=== PATIENT | female | born 1960 | race Caucasian/White ===

== ENCOUNTER → 2023-10-13 15:17 | Outpatient (CLI) | payer OTHER, SELFPAY ==
--- NOTE | 2023-10-13 15:19 | DI.CT.S_ITS ---
PROCEDURE: CT CHEST WO CON INDICATIONS: Hypoxemia TECHNIQUE: Noncontrast 5 mm thick sections acquired from the pulmonary apices to the posterior costophrenic angles. 1 mm lung window, 5 mm thick coronal and sagittal and 7 mm axial MIP reformats were then acquired. For radiation dose reduction, the following was used: automated exposure control, adjustment of mA and/or kV according to patient size. COMPARISON: None. FINDINGS: Image quality: Diagnostic. Lower Neck: No enlarged lymph nodes. Thyroid: No thyroid nodules which require sonographic follow up, per consensus guidelines. Axillae: No enlarged lymph nodes. Chest Wall: Unremarkable. Bones: Unremarkable. Lungs and Pleura: No pneumothorax or pleural effusions. There are too numerous to count tiny pulmonary nodules which are clearly evident on the maximum intensity projection images. Most of these nodules are barely perceptible on the 1 mm thick slices. There is a 6 mm pulmonary nodule in the right lower lobe on image 131/6. Heart: Heart size is normal. No pericardial effusion. Thoracic Vessels: The aorta and pulmonary arteries demonstrate normal size. Mediastinum and Macey: No enlarged lymph nodes. Esophagus: No wall thickening. No hiatal hernia. Upper Abdomen: Visualized upper abdomen solid organs and bowel loops appear normal. IMPRESSION: There is a 6 mm right lower lobe pulmonary nodule and there are too numerous to count very tiny pulmonary nodules, which are barely perceptible on thin sliced stacked imaging. Etiology of these pulmonary nodules is uncertain. They are most likely infectious or inflammatory in nature. However, recommend 3 month follow-up. Comment: Recommend 3 month follow-up CT. Dictated by: Reyes Paniagua M.D. on 10/13/2023 at 20:26 Approved by: Reyes Paniagua M.D. on 10/13/2023 at 20:30
== END ==
PROVIDERS: PCP Physician Assistant; Visit Provider Physician Assistant
DX: J45.20 Mild intermittent asthma, uncomplicated (principal); R91.8 Other nonspecific abnormal finding of lung field; R09.02 Hypoxemia; E66.2 Morbid (severe) obesity with alveolar hypoventilation; Z68.37 Body mass index [BMI] 37.0-37.9, adult
CPT/HCPCS: 71250

== ENCOUNTER → 2024-01-13 15:52 | Outpatient (CLI) | payer OTHER, SELFPAY ==
--- NOTE | 2024-01-13 15:53 | DI.CT.S_ITS ---
PROCEDURE: CT CHEST WO CON INDICATIONS: fu multiple lung nodules up to 6mm TECHNIQUE: Noncontrast 5 mm thick sections acquired from the pulmonary apices to the posterior costophrenic angles. 1 mm lung window, 5 mm thick coronal and sagittal and 7 mm axial MIP reformats were then acquired. For radiation dose reduction, the following was used: automated exposure control, adjustment of mA and/or kV according to patient size. COMPARISON: [facility], CT, CT CHEST WO CON, 10/13/2023, 15:33. FINDINGS: Image quality: Diagnostic. Lower Neck: No enlarged lymph nodes. Thyroid: No thyroid nodules which require sonographic follow up, per consensus guidelines. Axillae: No enlarged lymph nodes. Chest Wall: Unremarkable. Bones: Degenerative changes of the spine. Lungs and Pleura: No pneumothorax or pleural effusions. Stable 6 millimeter nodule in the superior aspect of the right middle lobe (3/135). Redemonstration of innumerable small pulmonary nodules measuring approximately 3 millimeters or less throughout the bilateral lungs, similar appearance to prior. Heart: Heart size is normal. No pericardial effusion. Thoracic Vessels: The aorta and pulmonary arteries demonstrate normal size. Mild atherosclerotic vascular calcifications. Mediastinum and Macey: No enlarged lymph nodes. Esophagus: No wall thickening. No hiatal hernia. Upper Abdomen: Visualized upper abdomen solid organs and bowel loops appear normal. IMPRESSION: 1. Redemonstration of innumerable small pulmonary nodules measuring approximately 3 millimeters or less throughout the bilateral lungs. Differential includes infectious or or inflammatory etiologies. Metastatic disease is not definitively excluded. Recommend follow-up imaging after treatment to assess for resolution. 2. Stable 6 millimeter nodule within the superior aspect of the right middle lobe. Dictated by: Dylon Lanza M.D. on 01/13/2024 at 16:32 Approved by: Dylon Lanza M.D. on 01/13/2024 at 16:36
== END ==
PROVIDERS: Referring Provider Internal Medicine; Visit Provider Internal Medicine
DX: R91.8 Other nonspecific abnormal finding of lung field (principal)
CPT/HCPCS: 71250